=== PATIENT | male | born 1980 | race Caucasian/White ===

== ENCOUNTER 2018-01-04 18:22 | Emergency (ER) | payer OTHER ==
[2018-01-04 18:34] VITALS: BP 126/85
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
[2018-01-04] MEDS ORDERED: Naproxen TAB* 250 MG PO ONE (19:00)
== END 2018-01-04 19:21 | disposition home or self-care (01) ==
LOC: UCEAST 18:22
DX: S06.0X0A Concussion without loss of consciousness, initial encounter (principal); W03.XXXA Other fall on same level due to collision with another person, initial encounter; W22.8XXA Striking against or struck by other objects, initial encounter; Y93.89 Activity, other specified; Y92.199 Unspecified place in other specified residential institution as the place of occurrence of the external cause
CPT/HCPCS: 99201; A9270-GY; G0463